=== PATIENT | male | born 1955 | race Caucasian/White ===

== ENCOUNTER 2018-04-05 10:05 | Outpatient (CLI) | payer OTHER | END 2018-04-05 10:15 | disposition home or self-care (01) | LOC: RAD 10:05 | DX: Z11.1 Encounter for screening for respiratory tuberculosis (principal) ==

== ENCOUNTER 2018-04-05 12:04 | Outpatient (CLI) | payer OTHER | END 2018-04-05 12:33 | disposition home or self-care (01) | LOC: LAB 12:04 | DX: Z11.3 Encounter for screening for infections with a predominantly sexual mode of transmission (principal) ==

== ENCOUNTER → 2019-06-06 | Outpatient (CLI) | payer OTHER | END | disposition home or self-care (01) | LOC: RAD 12:53 | DX: R05 Cough (principal) ==

== ENCOUNTER 2020-08-16 15:15 | Outpatient (CLI) | payer OTHER | END 2020-08-16 15:25 | disposition home or self-care (01) | LOC: LAB 15:15 | PROVIDERS: ATTEND General Practice | DX: Z11.3 Encounter for screening for infections with a predominantly sexual mode of transmission (principal) ==

== ENCOUNTER → 2020-08-16 | Outpatient (CLI) | payer OTHER | END | disposition home or self-care (01) | LOC: RAD 14:29 | PROVIDERS: ATTEND General Practice | DX: R76.11 Nonspecific reaction to tuberculin skin test without active tuberculosis (principal) ==